=== PATIENT | female | born 1990 | race Caucasian/White ===

== ENCOUNTER 2017-09-26 19:54 | Emergency (ER) | payer MEDICAID ==
[~2017-09-26] VITALS: Ht 160 cm; Wt 47.6 kg
[~2017-09-26 19:54] MED LIST: CEPH-568 PO; FERR-57 PO; HYDR-1189 PO; MULT PO; ONDA4TAB5 SL; PHEN-791 PO; TAMS-11 PO
--- NOTE | 2017-09-26 20:05 | NUR ---
Patient to ER bed 5 to gown for evaluation. Side rails up. Report given to Jhonny GUTIERREZ.
[2017-09-26 20:10] VITALS: BP_SYST 119
--- NOTE | 2017-09-26 20:15 | NUR ---
27year old female presented to ED with complaints of emotional distress x 1 hour. ETOH consumption leading to distress; reports stop taking antianxiety meds approximately 6months ago; awaiting for MD assess/naty
--- NOTE | 2017-09-26 20:50 | NUR ---
Dr. Gallego at bedside for assess/eval
[2017-09-26] MEDS ORDERED: LORazepam 1 MG TABLET PO ONE (21:00)
[2017-09-26 21:54] VITALS: BP_SYST 119
--- NOTE | 2017-09-26 21:54 | NUR ---
Patient given written and verbal discharge instructions and verbalizes understanding. ER MD discussed with patient the results and treatment provided. Patient in stable condition. ID arm band removed. Patient educated on pain management and to follow up with PMD. Pain Scale 0/10. Opportunity for questions provided and answered.
== END 2017-09-26 21:54 | disposition home or self-care (01) ==
LOC: SED 19:54
DX: F41.9 Anxiety disorder, unspecified (principal); Z87.442 Personal history of urinary calculi
CPT/HCPCS: 99284

== ENCOUNTER 2017-10-20 18:02 | Inpatient (IN) | payer MEDICAID ==
[~2017-10-20] VITALS: Ht 157.5 cm; Wt 54.0 kg
[2017-10-20 18:02] VITALS: BP_SYST 122
--- NOTE | 2017-10-20 18:02 | NUR ---
Placed in room 1 . Placed on caddy/caddie supervisor, blood pressure machine and pulse oximeter. To gown for exam. Side rails up. will assume care.
--- NOTE | 2017-10-20 18:02 | NUR ---
Note karla in ED - 10/20/17 at 1856 by SDEDCJM Placed in room q . Placed on cardiac rehabilitation specialist, blood pressure machine and pulse oximeter. To gown for exam. Side rails up. will assume care.
--- NOTE | 2017-10-20 18:10 | NUR ---
Patient found down in waiting room having a seizure for 30 seconds. Patient was able to respond to questions immediately after seizure. Patient states she has history of epilepsy and anxiety. Patient complains of having difficulty urinating for 1 week stating it takes her 20-30 minutes to urinate. Patient also states she has malaise. Body aches 10/10. No other complaints/injuries per patient or as noted. Will continue to monitor.
--- NOTE | 2017-10-20 18:20 | NUR ---
ER at bedside examining patient.
[2017-10-20] MEDS ORDERED: LORazepam 2 MG/ML VIAL (FOR ER USE) IVP ONE (18:30)
[2017-10-20] MEDS: KETOROLAC TROMETHAMINE 30 MG VIAL IVP ONE ×2 (18:34→18:43)
--- NOTE | 2017-10-20 18:37 | NUR ---
# 16 FR In and Out catheter with use of sterile technique. Immediate return of 400 ml clear yellow urine with sediment noted. Urine sample collected and sent to lab. Pt tolerated procedure well.
[2017-10-20 18:55] LABS: BILIRUBIN,URINE NEGATIVE (NEGATIVE); BLOOD, URINE 1+ (NEGATIVE); CLARITY/URINE CLEAR (CLEAR); COLOR,URINE YELLOW (YELLOW); GLUCOSE,URINE NEGATIVE (NEGATIVE); KETONES,URINE NEGATIVE (NEGATIVE); LEUKOCYTE ESTERASE ,URINE TRACE (NEGATIVE); NITRITE, URINE NEGATIVE (NEGATIVE); PH,URINE 6.5 (5.0-8.0); PROTEIN URINE NEGATIVE (NEGATIVE); UROBILINOGEN,URINE 0.2 (0.2-1.0)
[2017-10-20 18:58] LABS: CALCIUM 8.9 mg/dL (8.4-11.0); CREATININE 0.75 mg/dL (0.55-1.30); POTASSIUM 3.8 mmol/L (3.5-5.1)
[2017-10-20 19:01] LABS: BASOPHILS % (AUTO) 0.3 % (0.0-2.0); EOSINOPHILS # (AUTO) 0.1 K/uL (0.0-0.4); EOSINOPHILS % (AUTO) 1.2 % (0.0-4.0); HEMOGLOBIN 13.4 g/dL (12.0-16.0); LYMPHOCYTES # (AUTO) 2.6 K/uL (1.0-5.5); LYMPHOCYTES % (AUTO) 38.4 % (20.5-51.5); MEAN CORPUSCULAR HEMOGLOBIN 30 pg (27-31); MEAN CORPUSCULAR HGB CONC 34 % (32-36); MEAN CORPUSCULAR VOLUME 87 fL (79.0-98.0); MONOCYTES # (AUTO) 0.4 K/uL (0.0-1.0); MONOCYTES % (AUTO) 5.7 % (1.7-9.3); NEUTROPHILS # (AUTO) 3.6 K/uL (1.8-7.7); NEUTROPHILS % (AUTO) 54.4 % (40.0-70.0); PLATELET COUNT (AUTO) 165 K/uL (130-430); RED BLOOD CELL COUNT(AUTO) 4.49 MIL/uL (4.2-6.2); RED CELL DISTRIBUTION WIDTH 12.9 % (9.0-15.0); WHITE BLOOD COUNT (AUTO) 6.7 K/uL (4.8-10.8)
[2017-10-20 19:04] LABS: ALBUMIN 3.6 g/dL (3.4-4.8); TOTAL BILIRUBIN 0.3 mg/dL (0.0-1.0)
--- NOTE | 2017-10-20 19:11 | NUR ---
Assumed care of the patient. Patient is calmly resting in ER bed, no signs of distress noted. Vital signs are stable at this time.
[2017-10-20 19:14] LABS: BARBITURATE, URINE NEGATIVE (NEG <=200); BENZODIAZEPINE, URINE POSITIVE (NEG <=150); CANNABINOID, URINE NEGATIVE (NEG <=50); COCAINE, URINE NEGATIVE (NEG <=150); METHAMPHETAMINES SCREEN,URINE NEGATIVE (NEG <=500); OPIATE, URINE NEGATIVE (NEG <=100); PHENCYCLIDINE SCREEN,URINE NEGATIVE (NEG <=25); UR TRICYCLIC ANTIDEPRESSANTS NEGATIVE (NEG <=300); URINE AMPHETAMINE NEGATIVE (NEG <=500); URINE METHADONE NEGATIVE (NEG <=200); URINE OXYCODONE SCREEN POSITIVE (NEG <=100); URINE PROPOXYPHENE SCREEN NEGATIVE (NEG <=300)
[2017-10-20 19:18] LABS: BACTERIA,URINE FEW /HPF (None Seen); RBC,URINE 0-3 /HPF (0-3); WBC,URINE 0-3 /HPF (0-3)
[2017-10-20] MEDS ORDERED: LURA40TA PO (19:23)
[2017-10-20] MEDS ORDERED: GABA-531 PO (19:23)
--- NOTE | 2017-10-20 19:23 | NUR ---
Medication reconciliation completed with information provided by patient. Any prior medication reconciliation on file was reviewed and corrected.
[2017-10-20] MEDS ORDERED: NACL 0.9% 1,000 ML IV ONE (21:00)
--- NOTE | 2017-10-20 21:17 | NUR ---
Patient will be admitted to care of Dr. Giang. Admitted to tele unit. Will go to room 119 A. Belongings list completed. Summary report printed. Report given to admitting RN at bedside.
--- NOTE | 2017-10-20 21:17 | NUR ---
End of life care decisions discussed with patient by Dr. Crawford. Opportunity for questions and concerns addressed. Patient's code status is full code paperwork completed and placed in chart.
--- NOTE | 2017-10-20 21:18 | NUR ---
ADMISSION NOTE Received patient from ER via gurney. Patient admitted with diagnosis of []. Patient is awake, alert, oriented X []. Patient oriented to hospital room, call light, toileting, pain management and safety-teach back done. Patient informed that [] will be [] nurse and that their room number is []. Personal belongings checked and Belongings List documented. Call light within reach.
--- NOTE | 2017-10-20 21:18 | NUR ---
ADMISSION NOTE Received patient from ER via [place]. Patient admitted with diagnosis of seizures. Patient is awake, alert, oriented X4. Patient oriented to hospital room, call light, toileting, pain management and safety-teach back done. Patient informed that Tiffany RN and Hudson RN will be her nurse and that their room number is 119A. Bed is down, locked, side rails up x2, call light within reach, bed alarm on, seizure precautions in place.
--- NOTE | 2017-10-20 21:25 | NUR ---
Patient denies Suicidal Ideation Patient was in [facility] via ambulance on 09/28/17 d/t attempted suicide by taking 10 sleeping pills as per patient. Patient denies suicidal ideation at this time. Will continue to monitor.
[2017-10-20 21:35] VITALS: BP_SYST 131
--- NOTE | 2017-10-20 22:02 | NUR ---
CONSULT CONSULT CALLED FOR DR. QUIJANO FOR TOMORROW MORNING @ 0630 MUSIC SUPERVISOR TOMORROW 10/21/[address] SEARS REASON FOR CONSULT: SEIZURE REQUESTING CONSULT: DR. KENNEDY NUMBER I CALLED [phone]
[2017-10-20] MEDS: LORazepam 2 MG/ML VIAL IVP PRN (22:11)
--- NOTE | 2017-10-20 22:30 | NUR ---
Migraine Patient was able to void about 200mL of yellow urine after administration of Ativan. No s/s of respiratory distress noted. Patient given warm blanket and a clean new gown. Bed is down, locked, side rails up x2, call light within reach, bed alarm on, seizure precautions in place. Addendum: 10/21/17 at 0303 by Tiffany Moore RN Correction. Title should be: urine void.
--- NOTE | 2017-10-20 22:40 | NUR ---
Yamilka and spoke to Dr. Rahat Prather and spoke to Dr. Giang. Notified of patient c/o 06/01 migraine pain, patient c/o trouble urinating, and nausea. Requested MD to continue home medications. MD ordered RN to continue home medications as well as zofran 4mg, Sayner 5/325, and a UA and drug screen of the urine. Orders noted and carried out. Addendum: 10/21/17 at 0659 by Hudson Hines RN ER nurse put keflex and pyridium as home meds but patient denies taking them during admission assessment.
[2017-10-20] MEDS ORDERED: ONDANSETRON HCL 4 MG/2 ML VIAL IVP PRN (23:00)
[2017-10-20] MEDS: HYDROcodone/ACETAMIN 5-325 MG TAB (NORCO/ VICODIN) PO PRN (23:25)
--- NOTE | 2017-10-21 | NUR ---
Rounds Patient is resting in bed with eyes closed. No s/s of distress. Bed is down, locked, side rails up x2, call light within reach, bed alarm on, seizure precautions in place.
[2017-10-21 00:38] VITALS: BP_SYST 117
--- NOTE | 2017-10-21 01:47 | NUR ---
CANCELLED CONSULT FOR DR. QUIJANO I SPOKE WITH LEONOR POMPA ER ENTERED CONSULT FOR THE WRONG DOCTOR SO I AM WAITING FOR ER TO RE- ENTER NEW CONSULT
--- NOTE | 2017-10-21 01:57 | NUR ---
CONSULT CONSULT CALLED FOR DR. JELLY Plata SPOKE WITH YUSUF POMPA REASON FOR CONSULT: SEIZURES REQUESTING CONSULT: DR. HEAVENLY HAUSER I CALLED [phone]
--- NOTE | 2017-10-21 02:05 | NUR ---
Rounds Patient is resting in bed with eyes closed. No s/s of respiratory distress at this time. Bed is down, locked, side rails up x2, call light within reach, bed alarm on, seizure precautions in place.
--- NOTE | 2017-10-21 04:03 | NUR ---
Rounds Patient is resting in bed with eyes closed. No s/s of distress. Bed is down, locked, side rails up x2, call light within reach, bed alarm on, seizure precautions in place. Will continue to monitor.
[2017-10-21] MEDS ORDERED: FLU VACC QS 2017-18(36MOS+)/PF 0.5 ML/SYR SYRINGE I.M. PRN (05:30)
--- NOTE | 2017-10-21 05:30 | NUR ---
Flu shot administered Flu shot administered per patient request. Patient tolerated well. Bed is down, locked, side rails up x2, call light within reach, bed alarm on, seizure precautions in place. Will continue to monitor.
[2017-10-21] MEDS: HYDROcodone/ACETAMIN 5-325 MG TAB (NORCO/ VICODIN) PO PRN ×3 (05:58→15:04)
[2017-10-21] MEDS: LORazepam 2 MG/ML VIAL IVP PRN ×2 (05:59→10:14)
--- NOTE | 2017-10-21 06:57 | NUR ---
Closing note Patient is resting in bed with eyes closed. No s/s of respiratory distress noted. Breathing is even and unlabored. IV is patent and intact. All needs met and anticipated by [facility] nurses. Bed is down, locked, side rails up x2, call light within reach, bed alarm on. Will endorse to day shift nurse. Addendum: 10/21/17 at 0700 by Tiffany Moore RN seizure precautions in place
[2017-10-21 08:17] VITALS: BP_SYST 131
--- NOTE | 2017-10-21 08:28 | NUR ---
OPENING NOTE Patient awake, alert and oriented x4 in bed. Able to verbalize needs, assisted patient to the bedside commode, weakness noted, requires at least one assistance with transferring to the bedside commode. Educated on safety precautions, patient verbalizes understanding, use of call light, bed in lowest position, seizure and fall precautions in place, padded side rails, bed alarm on, bed close to nurse's station, call light with reach.
--- NOTE | 2017-10-21 08:45 | NUR ---
MEDICATION/ROUNDS Patient was being assisted to the bedside commode with PRESS FEEDER, assisted back to bed and tolerated well, educated patient on medications and potential side effects, patient verbalizes understanding, patient tolerated medication administration well. IV site flushed is patent and infusing well, no s/s of infiltration, continuing monitoring the patient. Bed is low, locked, bed alarm on, padded side rails, side rails x2 up, call light within reach. Fall and seizure precautions in place.
[2017-10-21] MEDS ORDERED: MULTIVITAMINS TAB 1 TABLET PO SCH (09:00)
[2017-10-21] MEDS ORDERED: TAMSULOSIN HCL 0.4 MG CAP PO SCH (09:00)
[2017-10-21] MEDS ORDERED: GABAPENTIN 300 MG CAPSULE PO SCH (09:00)
--- NOTE | 2017-10-21 10:15 | NUR ---
NORCO/ATIVAN Patient reports 10/10 sharp pain on the lower back, PRN Barn[place]all given PO and PRN Ativan IVP given, per patient request. Safety and seizure precautions in place, kept bed in lowest position, bed alarm on, call light with reach, encouraged to use call light when needing assistance.
--- NOTE | 2017-10-21 10:32 | NUR ---
Dr. Giang rounds assessed patient at bedside and discussed plan of care.
[2017-10-21] MEDS ORDERED: cefTRIAXone 1 GM in D5W 50 ML IV SCH (10:45)
[2017-10-21] MEDS ORDERED: cefTRIAXone 1 GM in D5W 50 ML IV ONE (11:00)
--- NOTE | 2017-10-21 11:02 | NUR ---
Family at bedside, discussed plan of care with patient and family, questions answered at this time, no other needs this time. Patient states pain level has improved, bed in lowest position, two side rails up, bed alarm on, bed close to nurse's station, fall and seizure precautions in place, call light within reach.
[2017-10-21 11:09] LABS: BASOPHILS % (AUTO) 0.3 % (0.0-2.0); EOSINOPHILS # (AUTO) 0.1 K/uL (0.0-0.4); HEMATOCRIT 42.3 % (36-48); HEMOGLOBIN 14.1 g/dL (12.0-16.0); LYMPHOCYTES # (AUTO) 2.2 K/uL (1.0-5.5); LYMPHOCYTES % (AUTO) 34.5 % (20.5-51.5); MEAN CORPUSCULAR HEMOGLOBIN 29 pg (27-31); MEAN CORPUSCULAR HGB CONC 33 % (32-36); MEAN CORPUSCULAR VOLUME 86 fL (79.0-98.0); MONOCYTES # (AUTO) 0.4 K/uL (0.0-1.0); MONOCYTES % (AUTO) 5.6 % (1.7-9.3); NEUTROPHILS # (AUTO) 3.8 K/uL (1.8-7.7); NEUTROPHILS % (AUTO) 58.6 % (40.0-70.0); RED CELL DISTRIBUTION WIDTH 12.9 % (9.0-15.0)
--- NOTE | 2017-10-21 11:10 | NUR ---
notified - pain informed Dr. Giang that pain medication was given one hour ago for severe pain, however the patient is still complaining of right flank pain and headache, Dr. Giang stated he will take a look at chart and decide whether to order more medication or not, will follow up as needed.
[2017-10-21 11:25] LABS: CALCIUM 9.4 mg/dL (8.4-11.0); CREATININE 0.58 mg/dL (0.55-1.30); POTASSIUM 4.4 mmol/L (3.5-5.1)
--- NOTE | 2017-10-21 11:35 | NUR ---
MEDICATION/ROUNDS Patient in bed, with reports of nausea, PRN Zofran given via IVP, Rocephin started and infusing at 100 ml/hr as ordered, IV site patent and intact. Seizure and safety precautions in place, bed is in lowest position, bed alarm is on, call light within reach.
[2017-10-21 11:41] LABS: PLATELET COUNT (AUTO) 205 K/uL (130-430); WHITE BLOOD COUNT (AUTO) 6.5 K/uL (4.8-10.8)
[2017-10-21 12:03] VITALS: BP_SYST 127
--- NOTE | 2017-10-21 12:34 | NUR ---
DC Planning note- BRANDON spoke with [facility] [phone], pt is capitated to [facility] or [facility]. Per [address] accepting drEdwar for [facility] is Dr. Harry Cuenca, CM can use any ambulance. ambulance authis #[phone]. BRANDON faxed to [facility] insurance pts information. to f#[phone].
--- NOTE | 2017-10-21 15:19 | NUR ---
Pain medication/Plan of Care Patient resting in bed, awake, states 8 right flank pain (renal ultrasound is negative for hydronephrosis), educated on pain medication, pain management and potential side effects, patient verbalized understanding and tolerated well, discussed plan of care - waiting on Dr. Deal neurology consult to see the patient, EEG was completed already pending results, patient and boyfriend verbalized understanding. Addendum: 10/21/17 at 1526 by Jagjit Jones RN Patient's boyfriend at [facility] station, asking when Dr. Deal will come, informed him that we will page Dr. Deal and get a time estimate but the consulting physicians do have within 24 hours of consult order to see the patient, he verbalized understanding at this time, he said that if we can't provide answers soon the patient will want to leave [place], following up.
--- NOTE | 2017-10-21 15:40 | NUR ---
AMA Patient does not wish to proceed with medical care recommended by Dr. Giang and RN. Patient given information related to possible complications, up to and including , which could occur as a result of leaving hospital at this time. Patient verbalizes understanding of risks involved leaving against medical advice. Patient has signed AMA form. Addendum: 10/21/17 at 1545 by Jagjit Jones RN Pain medication reassessment: patient states her pain has decreased. Left AMA with steady gait assisted by her boyfriend.
--- NOTE | 2017-10-21 16:15 | NUR ---
DC Planning- 1240- CM spoke with pt regarding [facility] insurance decision to transfer to [facility] either [facility] or [facility]. At 1440- CM received a call from Court informing CM that their MD spoke w/ Dr. Giang. Per Court according to Dr. Giang plan is for Neurology to see pt then if no other test to be done he will discharge the pt, if there is more test to be done pt will transfer to [facility] tomorrow. CM spoke with pt and boyfriend about the dc plan. Even with Cm explanation (in length) pt and boyfriend want to know more information on the laboratory results,diagnosis and why the patient need to wait for neurologist since the neurologist decision will be base on the different test results that was already done, CM informed nurse about the patients concerns.
[2017-10-21] MEDS ORDERED: NON-FORMULARY MEDICATION PO SCH (21:00)
[2017-10-22] MEDS ORDERED: cefTRIAXone 1 GM in D5W 50 ML IV SCH (09:00)
== END 2017-10-21 15:40 | disposition left against medical advice (07) | DRG 53 ==
LOC: SED 18:02 → STU 20:55
PROVIDERS: ADMIT Internal Medicine; ATTEND Internal Medicine
DX: G40.909 Epilepsy, unspecified, not intractable, without status epilepticus (principal); F32.9 Major depressive disorder, single episode, unspecified; F41.9 Anxiety disorder, unspecified; F41.0 Panic disorder [episodic paroxysmal anxiety]; Z53.21 Procedure and treatment not carried out due to patient leaving prior to being seen by health care provider; Z88.8 Allergy status to other drugs, medicaments and biological substances; Z88.6 Allergy status to analgesic agent; Z79.899 Other long term (current) drug therapy; Z87.442 Personal history of urinary calculi
CPT/HCPCS: 36415; 70450-TC; 76770; 80048; 80053; 80307; 81000-TC; 83735-TC; 84703; 85025; 87081; 95816; 96374; 99285; J0696; J1885; J2060; J2405; J7030; J7060; Q2037